=== PATIENT | male | born 1970 | race Caucasian/White ===

== ENCOUNTER → 2019-06-13 | Outpatient (CLI) | payer OTHER ==
[~2019-06-13] MED LIST: 0.9 % SODIUM CHLORIDE 10 ML VIAL ONE; FINA1TAB3 PO; IOHEXOL 300 MG/ML 50 ML VIAL. ONE; LIDOCAINE 1% PF 30 ML VIAL. ONE; SIMV40TA18 PO; [UNRECOGNIZED DRUG - OTHER] PO; methylPREDNISolone ACETATE 80 MG/ML VIAL. ONE
[2019-06-13 16:27] VITALS: BP 109/71
== END | disposition home or self-care (01) ==
LOC: SURG 14:59
PROVIDERS: ATTEND Anesthesiology Pain Medicine
DX: M54.16 Radiculopathy, lumbar region (principal); B20 Human immunodeficiency virus [HIV] disease; M19.90 Unspecified osteoarthritis, unspecified site; Z79.899 Other long term (current) drug therapy; Z98.890 Other specified postprocedural states
CPT/HCPCS: 62323; J1040; J2001; Q9967